=== PATIENT | male | born 1950 | race Caucasian/White ===

== ENCOUNTER 2019-12-07 13:55 | Inpatient (IN) | payer MEDICARE ==
[~2019-12-07] VITALS: Ht 175.3 cm; Wt 101.4 kg
[2019-12-07] MEDS ORDERED: SODIUM CHLORIDE 0.9% 1,000ML IVBOLUS ONE (14:30)
[2019-12-07] MEDS ORDERED: ONDANSETRON 2MG/ML, 2ML IVPush ONE (14:30)
[2019-12-07] MEDS ORDERED: SODIUM CHLORIDE FLUSH 10ML SYR IVF ONE (14:30)
--- NOTE | 2019-12-07 15:00 | NUR ---
Pt snet here from [facility] for leg wounds. Pt arrives to ed with lower bilateral leg pain and wounds with eschar and signs of poor perfusion. This RN is unable to palpate pedal pulse at this time. Pt connected to monitors and call light in reach. vss
[2019-12-07] MEDS ORDERED: ONDANSETRON 2MG/ML, 2ML ONE (15:14)
[2019-12-07] MEDS ORDERED: MORPHINE SULFATE 4 MG/ML, 1ML ONE ×2 (15:15→17:09)
--- NOTE | 2019-12-07 15:20 | NUR ---
Pt medicated and vascular us at bedside
[2019-12-07 15:23] LABS: MEAN CORPUSCULAR HEMOGLOBIN 30.3 pg (27.5-34.5); MEAN CORPUSCULAR HGB CONC 33.6 g/dL (33.2-36.2); MEAN CORPUSCULAR VOLUME 90.2 fL (81-97); MEAN PLATELET VOLUME 8.6 fL (7.4-10.4); PLATELET COUNT 307 x10^3/uL (130-400); RED BLOOD COUNT 5.28 x10^6/uL (4.38-5.82); RED CELL DISTRIBUTION WIDTH 14.8 % (9.4-14.8)
[2019-12-07] MEDS: MORPHINE SULFATE 4 MG/ML, 1ML IVPush PRN ×2 (15:23→17:13)
[2019-12-07 15:36] LABS: ALANINE AMINOTRANSFERASE 48 U/L (12-78); ANION GAP 13 mmol/L (5-15); CALCIUM 8.7 mg/dL (8.5-10.1); CHLORIDE 104 mmol/L (98-107); CREATININE 5.77 mg/dL (0.7-1.3)
[2019-12-07 15:38] LABS: ALKALINE PHOSPHATASE 137 U/L (45-117); BILIRUBIN,TOTAL 0.3 mg/dL (0.2-1.0); TOTAL PROTEIN 7.6 g/dL (6.4-8.2)
[2019-12-07 15:49] LABS: BASOPHILS # (AUTO) 0.06 x10^3/uL (0-0.1); BASOPHILS % (AUTO) 0 % (0-1); EOSINOPHILS # (AUTO) 1.92 x10^3/uL (0-0.4); EOSINOPHILS % (AUTO) 14 % (1-7); LYMPHOCYTES # (AUTO) 1.16 x10^3/uL (1-3.4); LYMPHOCYTES % (AUTO) 8 % (22-44); MD SCAN; MONOCYTES # (AUTO) 0.74 x10^3/uL (0.2-0.8); MONOCYTES % (AUTO) 5 % (2-9); NEUTROPHILS # (AUTO) 10.11 x10^3/uL (1.8-6.8); NEUTROPHILS % (AUTO) 72 % (42-75)
[2019-12-07] MEDS ORDERED: PLEASE ENTER ALLERGIES MC SCH (16:00)
--- NOTE | 2019-12-07 16:02 | NUR ---
Pt adjusted in bed for comfort. Reports pain under control.
[2019-12-07] MEDS ORDERED: SODIUM CHLORIDE 0.9% 1,000 ML IV SCH (17:04)
--- NOTE | 2019-12-07 17:15 | NUR ---
MED REQUESTED FROM [facility]
[2019-12-07] MEDS ORDERED: ONDANSETRON ODT 4 MG PO PRN (17:30)
[2019-12-07] MEDS ORDERED: ONDANSETRON 2MG/ML, 2ML IVPush PRN (17:30)
[2019-12-07] MEDS ORDERED: SENNA/DOCUSATE TABLET PO PRN (17:30)
--- NOTE | 2019-12-07 17:33 | NUR ---
Pt medicated for pain. Given oral swabs for comfort.
[2019-12-07] MEDS ORDERED: ASPI-515 PO (17:42)
[2019-12-07] MEDS ORDERED: FURO-93 PO (17:42)
[2019-12-07] MEDS ORDERED: LISI-170 PO (17:42)
[2019-12-07] MEDS ORDERED: NITR1PAT20 TD (17:42)
[2019-12-07] MEDS ORDERED: METF500T27 PO (17:42)
[2019-12-07] MEDS: CARVEDILOL 3.125 MG TABLET PO SCH (18:00)
[2019-12-07] MEDS ORDERED: HEPARIN 5,000 UNITS/ML, 1ML ONE (18:40)
[2019-12-07] MEDS ORDERED: NICOTINE 21 MG/24 HR PATCH.TD24 ONE (18:40)
[2019-12-07] MEDS: NICOTINE 21 MG/24 HR PATCH.TD24 TD SCH (18:45)
[2019-12-07] MEDS: HEPARIN 5,000 UNITS/ML, 1ML SQ SCH (18:45)
--- NOTE | 2019-12-07 18:47 | NUR ---
PT MEDICATED FOR PAIN, DIANA GRAY AWARE TO START ABX
--- NOTE | 2019-12-07 18:48 | NUR ---
REPORT TO ISAAC ORTIZ
[2019-12-07] MEDS: INSULIN LISPRO 100 UNITS/ML, PEN SQ-INSULIN SCH (20:01)
[2019-12-07] MEDS: ACETAMINOPHEN 325 MG TABLET PO PRN (21:22)
[2019-12-07 21:39] VITALS: BP 149/77
[2019-12-07] MEDS: AMPICILLIN/SULBACTAM 1,500 MG in SODIUM CHLORIDE 0.9% 50 ML IV SCH (22:20)
[2019-12-07] MEDS: LINEZOLID PMX 600MG/300ML 300 ML IV SCH (23:16)
[2019-12-08] MEDS ORDERED: ALBUTEROL SULFATE 2.5 MG/3 ML NPPB PRN (00:30)
[2019-12-08] MEDS: OXYcodone IR 5MG TABLET PO PRN ×3 (00:33→21:59)
[2019-12-08 01:11] VITALS: BP 115/60
[2019-12-08] MEDS: HEPARIN 5,000 UNITS/ML, 1ML SQ SCH ×3 (03:46→21:38)
[2019-12-08] MEDS: ASPIRIN 81 MG TABLET EC PO SCH (05:05)
[2019-12-08] MEDS: CARVEDILOL 3.125 MG TABLET PO SCH ×2 (05:05→17:36)
[2019-12-08 05:16] LABS: MEAN CORPUSCULAR HEMOGLOBIN 30.1 pg (27.5-34.5); MEAN CORPUSCULAR HGB CONC 33.3 g/dL (33.2-36.2); MEAN CORPUSCULAR VOLUME 90.4 fL (81-97); MEAN PLATELET VOLUME 8.9 fL (7.4-10.4); PLATELET COUNT 298 x10^3/uL (130-400); RED BLOOD COUNT 4.96 x10^6/uL (4.38-5.82); RED CELL DISTRIBUTION WIDTH 14.6 % (9.4-14.8)
[2019-12-08 05:29] LABS: ANION GAP 10 mmol/L (5-15); CALCIUM 8.6 mg/dL (8.5-10.1); CHLORIDE 108 mmol/L (98-107)
[2019-12-08 05:31] LABS: CREATININE 4.81 mg/dL (0.7-1.3)
[2019-12-08 06:15] LABS: BASOPHILS # (AUTO) 0.03 x10^3/uL (0-0.1); BASOPHILS % (AUTO) 0 % (0-1); EOSINOPHILS # (AUTO) 1.71 x10^3/uL (0-0.4); EOSINOPHILS % (AUTO) 10 % (1-7); LYMPHOCYTES # (AUTO) 0.99 x10^3/uL (1-3.4); LYMPHOCYTES % (AUTO) 6 % (22-44); MD SCAN; MONOCYTES # (AUTO) 1.48 x10^3/uL (0.2-0.8); MONOCYTES % (AUTO) 9 % (2-9); NEUTROPHILS # (AUTO) 12.21 x10^3/uL (1.8-6.8); NEUTROPHILS % (AUTO) 74 % (42-75)
[2019-12-08 06:41] VITALS: BP 110/61
[2019-12-08] MEDS: INSULIN LISPRO 100 UNITS/ML, PEN SQ-INSULIN SCH ×4 (07:00→21:00)
[2019-12-08] MEDS: LINEZOLID PMX 600MG/300ML 300 ML IV SCH ×2 (13:19→23:40)
[2019-12-08] MEDS: ACETAMINOPHEN 325 MG TABLET PO PRN ×2 (13:19→21:59)
[2019-12-08 14:29] LABS: CULTURE INDICATED? YES; MICROSCOPIC INDICATED
[2019-12-08 14:50] VITALS: BP 74/44
[2019-12-08] MEDS ORDERED: PHARMACY MAY ADJ FOR RENAL FX MC PRN (15:00)
[2019-12-08 15:04] LABS: CREATININE,URINE RANDOM 79.9 mg/dL
[2019-12-08] MEDS: SODIUM BICARB 8.4%,50ML SYR. 75 MEQ in SODIUM CHLORIDE 0.45% 1,000 ML IV SCH (15:21)
[2019-12-08] MEDS: NICOTINE 21 MG/24 HR PATCH.TD24 TD SCH (17:53)
[2019-12-08 19:32] VITALS: BP 107/68
[2019-12-08] MEDS: AMPICILLIN/SULBACTAM 1,500 MG in SODIUM CHLORIDE 0.9% 50 ML IV SCH (21:37)
[2019-12-09 01:24] VITALS: BP 104/64
[2019-12-09] MEDS: SODIUM BICARB 8.4%,50ML SYR. 75 MEQ in SODIUM CHLORIDE 0.45% 1,000 ML IV SCH ×2 (04:53→16:50)
[2019-12-09] MEDS: CARVEDILOL 3.125 MG TABLET PO SCH ×2 (05:05→16:51)
[2019-12-09] MEDS: ASPIRIN 81 MG TABLET EC PO SCH (05:05)
[2019-12-09] MEDS: HEPARIN 5,000 UNITS/ML, 1ML SQ SCH ×3 (05:05→19:46)
[2019-12-09 05:51] LABS: BASOPHILS # (AUTO) 0.03 x10^3/uL (0-0.1); BASOPHILS % (AUTO) 0 % (0-1); EOSINOPHILS # (AUTO) 1.42 x10^3/uL (0-0.4); EOSINOPHILS % (AUTO) 12 % (1-7); LYMPHOCYTES # (AUTO) 1.31 x10^3/uL (1-3.4); LYMPHOCYTES % (AUTO) 11 % (22-44); MD NO; MEAN CORPUSCULAR HEMOGLOBIN 30.2 pg (27.5-34.5); MEAN CORPUSCULAR HGB CONC 33.5 g/dL (33.2-36.2); MEAN CORPUSCULAR VOLUME 90.1 fL (81-97); MEAN PLATELET VOLUME 9.3 fL (7.4-10.4); MONOCYTES % (AUTO) 8 % (2-9); NEUTROPHILS # (AUTO) 8.63 x10^3/uL (1.8-6.8); NEUTROPHILS % (AUTO) 70 % (42-75); PLATELET COUNT 259 x10^3/uL (130-400); RED BLOOD COUNT 4.64 x10^6/uL (4.38-5.82); RED CELL DISTRIBUTION WIDTH 14.5 % (9.4-14.8)
[2019-12-09 05:52] LABS: ANION GAP 8 mmol/L (5-15); CALCIUM 8.4 mg/dL (8.5-10.1); CHLORIDE 111 mmol/L (98-107)
[2019-12-09 05:54] LABS: CREATININE 3.76 mg/dL (0.7-1.3)
[2019-12-09 06:53] VITALS: BP 93/41
[2019-12-09] MEDS: INSULIN LISPRO 100 UNITS/ML, PEN SQ-INSULIN SCH ×4 (07:00→19:45)
[2019-12-09] MEDS: OXYcodone IR 5MG TABLET PO PRN (09:09)
[2019-12-09] MEDS: LINEZOLID PMX 600MG/300ML 300 ML IV SCH ×2 (11:46→22:53)
[2019-12-09] MEDS ORDERED: OXYcodone/APAP 5/325MG TABLET ONE (12:47)
[2019-12-09] MEDS: OXYcodone/APAP 5/325MG TABLET PO PRN ×3 (12:52→22:08)
[2019-12-09 15:45] VITALS: BP 93/47
[2019-12-09 15:58] VITALS: BP 112/67
[2019-12-09] MEDS: NICOTINE 21 MG/24 HR PATCH.TD24 TD SCH (16:50)
[2019-12-09] MEDS: AMPICILLIN/SULBACTAM 1,500 MG in SODIUM CHLORIDE 0.9% 50 ML IV SCH (16:50)
[2019-12-09 18:38] VITALS: BP 107/57
[2019-12-10 01:27] VITALS: BP 117/71
[2019-12-10] MEDS: OXYcodone/APAP 5/325MG TABLET PO PRN ×3 (03:50→23:10)
[2019-12-10 05:44] LABS: BASOPHILS # (AUTO) 0.04 x10^3/uL (0-0.1); BASOPHILS % (AUTO) 0 % (0-1); EOSINOPHILS # (AUTO) 1.19 x10^3/uL (0-0.4); EOSINOPHILS % (AUTO) 11 % (1-7); LYMPHOCYTES # (AUTO) 0.94 x10^3/uL (1-3.4); LYMPHOCYTES % (AUTO) 9 % (22-44); MD NO; MEAN CORPUSCULAR VOLUME 90.9 fL (81-97); MEAN PLATELET VOLUME 9.1 fL (7.4-10.4); MONOCYTES # (AUTO) 0.73 x10^3/uL (0.2-0.8); MONOCYTES % (AUTO) 7 % (2-9); NEUTROPHILS # (AUTO) 8.09 x10^3/uL (1.8-6.8); NEUTROPHILS % (AUTO) 74 % (42-75); PLATELET COUNT 264 x10^3/uL (130-400); RED BLOOD COUNT 4.35 x10^6/uL (4.38-5.82); RED CELL DISTRIBUTION WIDTH 14.6 % (9.4-14.8)
[2019-12-10] MEDS: ASPIRIN 81 MG TABLET EC PO SCH (05:49)
[2019-12-10] MEDS: CARVEDILOL 3.125 MG TABLET PO SCH (05:49)
[2019-12-10] MEDS: HEPARIN 5,000 UNITS/ML, 1ML SQ SCH ×2 (05:49→16:57)
[2019-12-10] MEDS: AMPICILLIN/SULBACTAM 1,500 MG in SODIUM CHLORIDE 0.9% 50 ML IV SCH ×2 (05:49→16:57)
[2019-12-10 05:55] LABS: ANION GAP 10 mmol/L (5-15); CALCIUM 7.9 mg/dL (8.5-10.1); CHLORIDE 109 mmol/L (98-107); CREATININE 2.47 mg/dL (0.7-1.3)
[2019-12-10 06:51] VITALS: BP 99/44
[2019-12-10] MEDS: INSULIN LISPRO 100 UNITS/ML, PEN SQ-INSULIN SCH ×4 (07:00→21:00)
[2019-12-10] MEDS ORDERED: SODIUM CHLORIDE 0.9% 250 ML IV ONE (10:00)
[2019-12-10] MEDS: SODIUM BICARB 8.4%,50ML SYR. 75 MEQ in SODIUM CHLORIDE 0.45% 1,000 ML IV SCH (11:14)
[2019-12-10] MEDS: LINEZOLID PMX 600MG/300ML 300 ML IV SCH ×2 (11:41→23:10)
[2019-12-10 14:23] VITALS: BP 109/61
[2019-12-10] MEDS: NICOTINE 21 MG/24 HR PATCH.TD24 TD SCH (17:02)
[2019-12-10 19:23] VITALS: BP 107/71
[2019-12-11 00:53] VITALS: BP 98/56
[2019-12-11] MEDS: HEPARIN 5,000 UNITS/ML, 1ML SQ SCH ×3 (01:32→17:16)
[2019-12-11] MEDS: SODIUM BICARB 8.4%,50ML SYR. 75 MEQ in SODIUM CHLORIDE 0.45% 1,000 ML IV SCH (05:21)
[2019-12-11] MEDS: AMPICILLIN/SULBACTAM 1,500 MG in SODIUM CHLORIDE 0.9% 50 ML IV SCH ×3 (05:21→23:53)
[2019-12-11 05:27] LABS: BASOPHILS # (AUTO) 0.01 x10^3/uL (0-0.1); BASOPHILS % (AUTO) 0 % (0-1); EOSINOPHILS # (AUTO) 1.09 x10^3/uL (0-0.4); EOSINOPHILS % (AUTO) 9 % (1-7); LYMPHOCYTES % (AUTO) 10 % (22-44); MD NO; MEAN CORPUSCULAR HEMOGLOBIN 29.9 pg (27.5-34.5); MEAN CORPUSCULAR HGB CONC 33.4 g/dL (33.2-36.2); MEAN CORPUSCULAR VOLUME 89.7 fL (81-97); MEAN PLATELET VOLUME 8.7 fL (7.4-10.4); MONOCYTES # (AUTO) 0.81 x10^3/uL (0.2-0.8); MONOCYTES % (AUTO) 7 % (2-9); NEUTROPHILS # (AUTO) 8.64 x10^3/uL (1.8-6.8); NEUTROPHILS % (AUTO) 74 % (42-75); PLATELET COUNT 268 x10^3/uL (130-400); RED BLOOD COUNT 4.47 x10^6/uL (4.38-5.82); RED CELL DISTRIBUTION WIDTH 14.7 % (9.4-14.8)
[2019-12-11] MEDS: ASPIRIN 81 MG TABLET EC PO SCH (05:27)
[2019-12-11 05:35] LABS: ANION GAP 9 mmol/L (5-15); CALCIUM 8.2 mg/dL (8.5-10.1); CHLORIDE 108 mmol/L (98-107)
[2019-12-11 05:40] LABS: CHOL/HDL RATIO 5.5; CHOLESTEROL, TOTAL 122 mg/dL (140-239); CREATININE 2.03 mg/dL (0.7-1.3); HDL CHOL % 18 % (26-37); HDL CHOLESTEROL (DIRECT) 22 mg/dL (40-60); LDL CHOLESTEROL,CALCULATED 78 mg/dL (54-169); LDL/HDL RATIO 3.5 (0.5-3.0); TRIGLYCERIDES 108 mg/dL (50-200); VLDL CHOLESTEROL 22 mg/dL (0-25)
[2019-12-11] MEDS: OXYcodone/APAP 5/325MG TABLET PO PRN (07:10)
[2019-12-11] MEDS: INSULIN LISPRO 100 UNITS/ML, PEN SQ-INSULIN SCH ×4 (07:41→19:33)
[2019-12-11 08:03] VITALS: BP 175/100
[2019-12-11] MEDS: MORPHINE SULFATE 4 MG/ML, 1ML IVPush PRN ×4 (09:12→22:55)
[2019-12-11 09:15] VITALS: BP 116/66
[2019-12-11] MEDS: LINEZOLID PMX 600MG/300ML 300 ML IV SCH ×2 (11:59→23:00)
[2019-12-11 12:42] VITALS: BP 123/56
[2019-12-11] MEDS: CARVEDILOL 3.125 MG TABLET PO SCH (17:17)
[2019-12-11] MEDS: NICOTINE 21 MG/24 HR PATCH.TD24 TD SCH (17:17)
[2019-12-11 18:48] VITALS: BP 127/61
[2019-12-11] MEDS: ATORVASTATIN 80 MG TABLET PO SCH (19:51)
[2019-12-12 00:51] VITALS: BP 100/61
[2019-12-12] MEDS: LINEZOLID PMX 600MG/300ML 300 ML IV SCH ×3 (01:06→23:16)
[2019-12-12] MEDS: HEPARIN 5,000 UNITS/ML, 1ML SQ SCH ×3 (01:10→16:22)
[2019-12-12 04:59] LABS: BASOPHILS # (AUTO) 0.04 x10^3/uL (0-0.1); BASOPHILS % (AUTO) 0 % (0-1); EOSINOPHILS # (AUTO) 0.86 x10^3/uL (0-0.4); EOSINOPHILS % (AUTO) 7 % (1-7); LYMPHOCYTES # (AUTO) 1.17 x10^3/uL (1-3.4); LYMPHOCYTES % (AUTO) 10 % (22-44); MD NO; MEAN CORPUSCULAR HEMOGLOBIN 29.9 pg (27.5-34.5); MEAN CORPUSCULAR VOLUME 90.6 fL (81-97); MEAN PLATELET VOLUME 8.3 fL (7.4-10.4); MONOCYTES # (AUTO) 0.79 x10^3/uL (0.2-0.8); MONOCYTES % (AUTO) 7 % (2-9); NEUTROPHILS # (AUTO) 9.16 x10^3/uL (1.8-6.8); NEUTROPHILS % (AUTO) 76 % (42-75); PLATELET COUNT 301 x10^3/uL (130-400); RED BLOOD COUNT 4.91 x10^6/uL (4.38-5.82); RED CELL DISTRIBUTION WIDTH 14.6 % (9.4-14.8)
[2019-12-12 05:08] LABS: ALBUMIN 1.9 g/dL (3.4-5.0); ANION GAP 7 mmol/L (5-15); CALCIUM 8.5 mg/dL (8.5-10.1); CHLORIDE 107 mmol/L (98-107); CREATININE 1.73 mg/dL (0.7-1.3)
[2019-12-12] MEDS: ASPIRIN 81 MG TABLET EC PO SCH (05:10)
[2019-12-12] MEDS: CARVEDILOL 3.125 MG TABLET PO SCH ×2 (05:10→17:27)
[2019-12-12] MEDS: MORPHINE SULFATE 4 MG/ML, 1ML IVPush PRN ×3 (05:11→21:04)
[2019-12-12 06:21] VITALS: BP 108/63
[2019-12-12] MEDS: INSULIN LISPRO 100 UNITS/ML, PEN SQ-INSULIN SCH ×4 (07:00→21:05)
[2019-12-12] MEDS: AMPICILLIN/SULBACTAM 1,500 MG in SODIUM CHLORIDE 0.9% 50 ML IV SCH ×2 (08:43→16:22)
[2019-12-12] MEDS: OXYcodone/APAP 5/325MG TABLET PO PRN ×2 (11:12→18:12)
[2019-12-12 12:16] VITALS: BP 131/67
[2019-12-12] MEDS: NICOTINE 21 MG/24 HR PATCH.TD24 TD SCH (16:22)
[2019-12-12 19:03] VITALS: BP 151/54
[2019-12-12] MEDS: ATORVASTATIN 80 MG TABLET PO SCH (21:04)
[2019-12-13] VITALS (7 sets, daily range): BP systolic 110–134; BP diastolic 55–79
[2019-12-13] MEDS ORDERED: SODIUM BICARB 8.4%,50ML SYR. 75 MEQ in SODIUM CHLORIDE 0.45% 1,000 ML IV ONE
[2019-12-13] MEDS: HEPARIN 5,000 UNITS/ML, 1ML SQ SCH ×3 (02:04→17:30)
[2019-12-13] MEDS: AMPICILLIN/SULBACTAM 1,500 MG in SODIUM CHLORIDE 0.9% 50 ML IV SCH ×3 (02:04→17:27)
[2019-12-13 04:58] LABS: BASOPHILS % (AUTO) 1 % (0-1); EOSINOPHILS % (AUTO) 11 % (1-7); LYMPHOCYTES # (AUTO) 1.34 x10^3/uL (1-3.4); LYMPHOCYTES % (AUTO) 12 % (22-44); MD NO; MEAN CORPUSCULAR HEMOGLOBIN 29.8 pg (27.5-34.5); MEAN CORPUSCULAR HGB CONC 32.9 g/dL (33.2-36.2); MEAN CORPUSCULAR VOLUME 90.6 fL (81-97); MEAN PLATELET VOLUME 8.7 fL (7.4-10.4); MONOCYTES % (AUTO) 6 % (2-9); NEUTROPHILS # (AUTO) 7.74 x10^3/uL (1.8-6.8); NEUTROPHILS % (AUTO) 70 % (42-75); PLATELET COUNT 285 x10^3/uL (130-400); RED BLOOD COUNT 4.68 x10^6/uL (4.38-5.82); RED CELL DISTRIBUTION WIDTH 14.6 % (9.4-14.8)
[2019-12-13 05:03] LABS: ANION GAP 8 mmol/L (5-15); CALCIUM 8.3 mg/dL (8.5-10.1); CHLORIDE 106 mmol/L (98-107); CREATININE 1.52 mg/dL (0.7-1.3)
[2019-12-13] MEDS: CARVEDILOL 3.125 MG TABLET PO SCH ×2 (05:55→17:30)
[2019-12-13] MEDS: ASPIRIN 81 MG TABLET EC PO SCH (05:55)
[2019-12-13] MEDS: INSULIN LISPRO 100 UNITS/ML, PEN SQ-INSULIN SCH ×4 (07:52→20:16)
[2019-12-13] MEDS: MORPHINE SULFATE 4 MG/ML, 1ML IVPush PRN ×2 (09:46→20:12)
[2019-12-13] MEDS: LINEZOLID PMX 600MG/300ML 300 ML IV SCH ×2 (10:39→22:10)
[2019-12-13] MEDS ORDERED: FENTANYL PF 100 MCG/2ML ONE (11:39)
[2019-12-13] MEDS ORDERED: MIDAZOLAM 1 MG/ML, 5ML ONE (11:39)
[2019-12-13] MEDS ORDERED: HEPARIN 1,000 UNITS/ML, 10ML ONE (11:39)
[2019-12-13] MEDS ORDERED: VERAPAMIL 2.5 MG/ML, 2ML ONE (11:39)
[2019-12-13] MEDS ORDERED: LIDOCAINE-MPF 1%, 5ML ONE (11:39)
[2019-12-13] MEDS ORDERED: TICAGRELOR 90 MG TABLET ONE (11:39)
[2019-12-13] MEDS ORDERED: BIVALIRUDIN 250 MG ONE (11:39)
[2019-12-13] MEDS: SODIUM CHLORIDE 0.9% 1,000 ML IV SCH (17:24)
[2019-12-13] MEDS: NICOTINE 21 MG/24 HR PATCH.TD24 TD SCH (17:34)
[2019-12-13] MEDS: ATORVASTATIN 80 MG TABLET PO SCH (20:11)
[2019-12-14 00:39] VITALS: BP 135/56
[2019-12-14] MEDS: HEPARIN 5,000 UNITS/ML, 1ML SQ SCH ×3 (01:09→17:51)
[2019-12-14] MEDS: AMPICILLIN/SULBACTAM 1,500 MG in SODIUM CHLORIDE 0.9% 50 ML IV SCH ×3 (01:09→17:52)
[2019-12-14] MEDS: MORPHINE SULFATE 4 MG/ML, 1ML IVPush PRN ×2 (01:10→16:31)
[2019-12-14 05:54] LABS: BASOPHILS # (AUTO) 0.04 x10^3/uL (0-0.1); BASOPHILS % (AUTO) 0 % (0-1); EOSINOPHILS # (AUTO) 0.73 x10^3/uL (0-0.4); EOSINOPHILS % (AUTO) 7 % (1-7); LYMPHOCYTES # (AUTO) 1.18 x10^3/uL (1-3.4); LYMPHOCYTES % (AUTO) 11 % (22-44); MD NO; MEAN CORPUSCULAR HEMOGLOBIN 30.1 pg (27.5-34.5); MEAN CORPUSCULAR HGB CONC 33.4 g/dL (33.2-36.2); MEAN CORPUSCULAR VOLUME 90.3 fL (81-97); MEAN PLATELET VOLUME 8.7 fL (7.4-10.4); MONOCYTES # (AUTO) 0.75 x10^3/uL (0.2-0.8); MONOCYTES % (AUTO) 7 % (2-9); NEUTROPHILS # (AUTO) 7.73 x10^3/uL (1.8-6.8); NEUTROPHILS % (AUTO) 74 % (42-75); PLATELET COUNT 239 x10^3/uL (130-400); RED BLOOD COUNT 4.53 x10^6/uL (4.38-5.82); RED CELL DISTRIBUTION WIDTH 14.5 % (9.4-14.8)
[2019-12-14 06:10] LABS: ANION GAP 9 mmol/L (5-15); CALCIUM 8.1 mg/dL (8.5-10.1); CHLORIDE 109 mmol/L (98-107)
[2019-12-14] MEDS: SODIUM CHLORIDE 0.9% 1,000 ML IV SCH ×2 (06:10→16:30)
[2019-12-14] MEDS: ASPIRIN 81 MG TABLET EC PO SCH (06:10)
[2019-12-14] MEDS: CARVEDILOL 3.125 MG TABLET PO SCH ×2 (06:10→17:56)
[2019-12-14 06:13] LABS: CREATININE 1.39 mg/dL (0.7-1.3)
[2019-12-14 06:40] VITALS: BP 117/67
[2019-12-14] MEDS: INSULIN LISPRO 100 UNITS/ML, PEN SQ-INSULIN SCH ×4 (07:00→20:50)
[2019-12-14] MEDS: LINEZOLID PMX 600MG/300ML 300 ML IV SCH (11:03)
[2019-12-14 12:50] VITALS: BP 137/67
[2019-12-14 16:30] VITALS: BP 150/62
[2019-12-14] MEDS: NICOTINE 21 MG/24 HR PATCH.TD24 TD SCH (17:53)
[2019-12-14 19:47] VITALS: BP 144/79
[2019-12-14] MEDS: ATORVASTATIN 80 MG TABLET PO SCH (20:46)
[2019-12-14] MEDS: OXYcodone/APAP 5/325MG TABLET PO PRN (21:40)
[2019-12-15] MEDS: SODIUM CHLORIDE 0.9% 1,000 ML IV SCH
[2019-12-15] MEDS: HEPARIN 5,000 UNITS/ML, 1ML SQ SCH ×3 (00:54→17:09)
[2019-12-15] MEDS: LINEZOLID PMX 600MG/300ML 300 ML IV SCH ×2 (01:00→18:36)
[2019-12-15 01:13] VITALS: BP 135/65
[2019-12-15] MEDS: AMPICILLIN/SULBACTAM 1,500 MG in SODIUM CHLORIDE 0.9% 50 ML IV SCH ×3 (03:13→21:28)
[2019-12-15 04:10] LABS: BASOPHILS # (AUTO) 0.02 x10^3/uL (0-0.1); BASOPHILS % (AUTO) 0 % (0-1); EOSINOPHILS # (AUTO) 0.47 x10^3/uL (0-0.4); EOSINOPHILS % (AUTO) 4 % (1-7); LYMPHOCYTES # (AUTO) 1.05 x10^3/uL (1-3.4); LYMPHOCYTES % (AUTO) 10 % (22-44); MD NO; MEAN CORPUSCULAR HGB CONC 33.6 g/dL (33.2-36.2); MEAN CORPUSCULAR VOLUME 89.3 fL (81-97); MEAN PLATELET VOLUME 7.9 fL (7.4-10.4); MONOCYTES # (AUTO) 0.57 x10^3/uL (0.2-0.8); MONOCYTES % (AUTO) 5 % (2-9); NEUTROPHILS # (AUTO) 8.96 x10^3/uL (1.8-6.8); NEUTROPHILS % (AUTO) 81 % (42-75); PLATELET COUNT 237 x10^3/uL (130-400); RED BLOOD COUNT 4.32 x10^6/uL (4.38-5.82); RED CELL DISTRIBUTION WIDTH 14.2 % (9.4-14.8)
[2019-12-15 04:20] LABS: ALANINE AMINOTRANSFERASE 17 U/L (12-78); ALBUMIN 1.7 g/dL (3.4-5.0); ANION GAP 7 mmol/L (5-15); CALCIUM 7.9 mg/dL (8.5-10.1); CHLORIDE 110 mmol/L (98-107); CREATININE 1.28 mg/dL (0.7-1.3)
[2019-12-15 04:22] LABS: ALKALINE PHOSPHATASE 127 U/L (45-117); BILIRUBIN,TOTAL 0.5 mg/dL (0.2-1.0); TOTAL PROTEIN 5.7 g/dL (6.4-8.2)
[2019-12-15 06:08] VITALS: BP 128/65
[2019-12-15] MEDS: CARVEDILOL 3.125 MG TABLET PO SCH ×2 (06:08→18:24)
[2019-12-15] MEDS: ASPIRIN 81 MG TABLET EC PO SCH (06:09)
[2019-12-15 06:42] VITALS: BP 147/73
[2019-12-15] MEDS: INSULIN LISPRO 100 UNITS/ML, PEN SQ-INSULIN SCH ×4 (07:00→21:29)
[2019-12-15] MEDS ORDERED: PAPAVERINE 30 MG/ML, 2ML ONE (07:28)
[2019-12-15] MEDS ORDERED: HEPARIN 1,000 UNITS/ML, 10ML ONE (07:29)
[2019-12-15] MEDS ORDERED: THROMBIN 20,000 UNIT VIAL TP ONE (07:30)
[2019-12-15] MEDS ORDERED: BACITRACIN 50,000 UNIT ONE (07:31)
[2019-12-15] MEDS ORDERED: DEXTROSE 50%, 50ML SYRINGE ONE (07:49)
[2019-12-15] MEDS: MORPHINE SULFATE 4 MG/ML, 1ML IVPush PRN (07:54)
[2019-12-15] MEDS ORDERED: DEXTROSE 4 GM TAB.CHEW PO PRN (08:00)
[2019-12-15] MEDS ORDERED: GLUCAGON 1 MG IM PRN (08:00)
[2019-12-15] MEDS ORDERED: DEXTROSE 50%, 50ML SYRINGE IVPush PRN (08:00)
[2019-12-15] MEDS: SODIUM CHLORIDE FLUSH 10ML SYR IVF SCH ×2 (08:03→21:00)
[2019-12-15] MEDS ORDERED: PROTAMINE SULFATE 10 MG/ML, 5ML ONE (08:51)
[2019-12-15] MEDS: D5%-0.45NACL+KCL 20MEQ 1,000 ML IV SCH ×2 (09:54→22:36)
[2019-12-15] MEDS: OXYcodone/APAP 5/325MG TABLET PO PRN (10:15)
[2019-12-15] MEDS ORDERED: FENTANYL PF 250 MCG/5ML ONE (12:43)
[2019-12-15] MEDS ORDERED: MIDAZOLAM 1 MG/ML, 2ML ONE (12:43)
[2019-12-15] MEDS ORDERED: ROCURONIUM 10MG/ML,5ML ONE (12:45)
[2019-12-15] MEDS ORDERED: PROPOFOL 10 MG/ML, 20ML ONE (12:45)
[2019-12-15] MEDS ORDERED: EPHEDRINE 50 MG/ML, 1ML ONE (13:09)
[2019-12-15] MEDS ORDERED: DEXAMETHASONE 4 MG/ML, 1ML ONE (13:09)
[2019-12-15] MEDS ORDERED: CEFAZOLIN 1,000 MG ONE (13:09)
[2019-12-15] MEDS ORDERED: HEPARIN 1,000 UNITS/ML, 30ML ONE (13:40)
[2019-12-15] MEDS ORDERED: SUGAMMADEX 200 MG/2 ML IVPush ONE (14:24)
[2019-12-15] MEDS ORDERED: MEPERIDINE/PF 25MG/ML,1ML IVPush PRN (16:00)
[2019-12-15] MEDS ORDERED: OXYcodone 5 MG/5 ML ORAL.SOL UDC PO PRN (16:00)
[2019-12-15] MEDS ORDERED: LABETALOL 5MG/ML, 20ML IV PRN (16:00)
[2019-12-15] MEDS ORDERED: ONDANSETRON ODT 8 MG PO PRN (16:00)
[2019-12-15] MEDS ORDERED: PROMETHAZINE 12.5 MG SUPP PR PRN (16:00)
[2019-12-15] MEDS ORDERED: HYDROmorphone 2 MG/ML, 1ML IVPush PRN (16:00)
[2019-12-15] MEDS ORDERED: MIDAZOLAM 1 MG/ML, 2ML IV PRN (16:00)
[2019-12-15] MEDS ORDERED: ALBUTEROL SULFATE 2.5 MG/3 ML NPPB PRN (16:00)
[2019-12-15] MEDS ORDERED: HALOPERIDOL 5 MG/ML IV PRN (16:00)
[2019-12-15] MEDS ORDERED: DIAZEPAM 5 MG/ML, 2ML IVPush PRN (16:00)
[2019-12-15] MEDS ORDERED: PROMETHAZINE 25 MG/ML, 1ML IV PRN (16:00)
[2019-12-15] MEDS ORDERED: hydrALAzine 20 MG/ML, 1ML IV PRN (16:00)
[2019-12-15] MEDS ORDERED: EPHEDRINE 50 MG/ML, 1ML IVPush PRN (16:00)
[2019-12-15] MEDS ORDERED: FENTANYL PF 100 MCG/2ML ONE (16:58)
[2019-12-15] MEDS ORDERED: OXYcodone 5 MG/5 ML ORAL.SOL UDC ONE (16:58)
[2019-12-15] MEDS: FENTANYL PF 100 MCG/2ML IV PRN ×2 (17:04→17:11)
[2019-12-15] MEDS ORDERED: morphine SULFATE 10 MG/ML, 1ML IV PRN (18:00)
[2019-12-15] MEDS: NICOTINE 21 MG/24 HR PATCH.TD24 TD SCH (18:23)
[2019-12-15] MEDS: ATORVASTATIN 80 MG TABLET PO SCH (20:02)
[2019-12-15 21:43] VITALS: BP 95/59
[2019-12-16] VITALS (10 sets, daily range): BP systolic 87–114; BP diastolic 43–90
[2019-12-16] MEDS: HEPARIN 5,000 UNITS/ML, 1ML SQ SCH ×4 (01:47→22:04)
[2019-12-16] MEDS ORDERED: SODIUM CHLORIDE 0.9%, 500ML IVBOLUS ONE ×3 (05:00→11:00)
[2019-12-16 05:14] LABS: ANION GAP 9 mmol/L (5-15); CALCIUM 7.7 mg/dL (8.5-10.1); CHLORIDE 108 mmol/L (98-107)
[2019-12-16 05:16] LABS: CREATININE 1.64 mg/dL (0.7-1.3)
[2019-12-16 05:22] LABS: MEAN CORPUSCULAR HEMOGLOBIN 29.8 pg (27.5-34.5); MEAN CORPUSCULAR HGB CONC 32.8 g/dL (33.2-36.2); MEAN CORPUSCULAR VOLUME 90.8 fL (81-97); MEAN PLATELET VOLUME 8.2 fL (7.4-10.4); PLATELET COUNT 265 x10^3/uL (130-400); RED BLOOD COUNT 3.91 x10^6/uL (4.38-5.82); RED CELL DISTRIBUTION WIDTH 14.3 % (9.4-14.8)
[2019-12-16] MEDS: AMPICILLIN/SULBACTAM 1,500 MG in SODIUM CHLORIDE 0.9% 50 ML IV SCH ×3 (05:29→21:58)
[2019-12-16] MEDS: D5%-0.45NACL+KCL 20MEQ 1,000 ML IV SCH (05:39)
[2019-12-16] MEDS: LINEZOLID PMX 600MG/300ML 300 ML IV SCH ×2 (06:08→18:31)
[2019-12-16 06:12] LABS: BASOPHILS # (AUTO) 0.01 x10^3/uL (0-0.1); BASOPHILS % (AUTO) 0 % (0-1); EOSINOPHILS % (AUTO) 0 % (1-7); LYMPHOCYTES % (AUTO) 4 % (22-44); MD SCAN; MONOCYTES # (AUTO) 1.05 x10^3/uL (0.2-0.8); MONOCYTES % (AUTO) 5 % (2-9); NEUTROPHILS # (AUTO) 18.27 x10^3/uL (1.8-6.8); NEUTROPHILS % (AUTO) 91 % (42-75)
[2019-12-16] MEDS: CARVEDILOL 3.125 MG TABLET PO SCH ×2 (06:12→18:21)
[2019-12-16] MEDS: ASPIRIN 81 MG TABLET EC PO SCH (06:12)
[2019-12-16] MEDS: INSULIN LISPRO 100 UNITS/ML, PEN SQ-INSULIN SCH ×4 (07:44→20:12)
[2019-12-16] MEDS: SODIUM CHLORIDE FLUSH 10ML SYR IVF SCH ×2 (09:02→21:58)
[2019-12-16] MEDS: SODIUM CHLORIDE 0.9% 1,000 ML IV SCH ×2 (12:04→19:30)
[2019-12-16] MEDS: NICOTINE 21 MG/24 HR PATCH.TD24 TD SCH (18:31)
[2019-12-16] MEDS: ATORVASTATIN 80 MG TABLET PO SCH (21:58)
[2019-12-17 00:06] VITALS: BP 109/66
[2019-12-17] MEDS: HEPARIN 5,000 UNITS/ML, 1ML SQ SCH ×3 (00:19→17:16)
[2019-12-17] MEDS: SODIUM CHLORIDE 0.9% 1,000 ML IV SCH ×2 (02:52→14:36)
[2019-12-17] MEDS: AMPICILLIN/SULBACTAM 1,500 MG in SODIUM CHLORIDE 0.9% 50 ML IV SCH ×3 (05:03→20:27)
[2019-12-17] MEDS: CARVEDILOL 3.125 MG TABLET PO SCH ×2 (05:03→17:16)
[2019-12-17] MEDS: ASPIRIN 81 MG TABLET EC PO SCH (05:03)
[2019-12-17 05:04] VITALS: BP 100/66
[2019-12-17] MEDS: LINEZOLID PMX 600MG/300ML 300 ML IV SCH ×2 (06:27→17:16)
[2019-12-17 07:30] VITALS: BP 115/75
[2019-12-17 08:25] LABS: BASOPHILS # (AUTO) 0.01 x10^3/uL (0-0.1); BASOPHILS % (AUTO) 0 % (0-1); EOSINOPHILS % (AUTO) 0 % (1-7); LYMPHOCYTES # (AUTO) 0.76 x10^3/uL (1-3.4); LYMPHOCYTES % (AUTO) 5 % (22-44); MD NO; MEAN CORPUSCULAR HEMOGLOBIN 29.8 pg (27.5-34.5); MEAN CORPUSCULAR HGB CONC 32.6 g/dL (33.2-36.2); MEAN CORPUSCULAR VOLUME 91.1 fL (81-97); MEAN PLATELET VOLUME 8.1 fL (7.4-10.4); MONOCYTES # (AUTO) 0.93 x10^3/uL (0.2-0.8); MONOCYTES % (AUTO) 6 % (2-9); NEUTROPHILS # (AUTO) 14.49 x10^3/uL (1.8-6.8); NEUTROPHILS % (AUTO) 90 % (42-75); PLATELET COUNT 249 x10^3/uL (130-400); RED BLOOD COUNT 3.53 x10^6/uL (4.38-5.82); RED CELL DISTRIBUTION WIDTH 14.7 % (9.4-14.8)
[2019-12-17] MEDS: SODIUM CHLORIDE FLUSH 10ML SYR IVF SCH ×2 (08:30→20:28)
[2019-12-17 08:35] LABS: ALANINE AMINOTRANSFERASE 14 U/L (12-78); ALBUMIN 1.7 g/dL (3.4-5.0); ANION GAP 8 mmol/L (5-15); CALCIUM 7.4 mg/dL (8.5-10.1); CHLORIDE 108 mmol/L (98-107); CREATININE 1.54 mg/dL (0.7-1.3)
[2019-12-17 08:36] LABS: ALKALINE PHOSPHATASE 116 U/L (45-117); BILIRUBIN,TOTAL 0.7 mg/dL (0.2-1.0); TOTAL PROTEIN 5.3 g/dL (6.4-8.2)
[2019-12-17] MEDS: INSULIN LISPRO 100 UNITS/ML, PEN SQ-INSULIN SCH ×4 (09:19→20:29)
[2019-12-17 13:38] VITALS: BP 132/83
[2019-12-17] MEDS: NICOTINE 21 MG/24 HR PATCH.TD24 TD SCH (16:54)
[2019-12-17 18:54] VITALS: BP 107/64
[2019-12-17] MEDS: ATORVASTATIN 80 MG TABLET PO SCH (20:28)
[2019-12-18] MEDS: HEPARIN 5,000 UNITS/ML, 1ML SQ SCH ×3 (00:28→22:23)
[2019-12-18] MEDS: SODIUM CHLORIDE 0.9% 1,000 ML IV SCH ×3 (00:29→22:24)
[2019-12-18 00:39] VITALS: BP 121/70
[2019-12-18] MEDS: AMPICILLIN/SULBACTAM 1,500 MG in SODIUM CHLORIDE 0.9% 50 ML IV SCH ×4 (01:16→22:52)
[2019-12-18 04:48] LABS: BASOPHILS # (AUTO) 0.08 x10^3/uL (0-0.1); BASOPHILS % (AUTO) 1 % (0-1); EOSINOPHILS % (AUTO) 0 % (1-7); LYMPHOCYTES # (AUTO) 1.05 x10^3/uL (1-3.4); LYMPHOCYTES % (AUTO) 7 % (22-44); MD NO; MEAN CORPUSCULAR HEMOGLOBIN 29.6 pg (27.5-34.5); MEAN CORPUSCULAR HGB CONC 33.2 g/dL (33.2-36.2); MEAN CORPUSCULAR VOLUME 89.2 fL (81-97); MEAN PLATELET VOLUME 8.5 fL (7.4-10.4); MONOCYTES % (AUTO) 6 % (2-9); NEUTROPHILS % (AUTO) 86 % (42-75); PLATELET COUNT 245 x10^3/uL (130-400); RED BLOOD COUNT 3.72 x10^6/uL (4.38-5.82); RED CELL DISTRIBUTION WIDTH 14.3 % (9.4-14.8)
[2019-12-18 04:59] LABS: CALCIUM 7.8 mg/dL (8.5-10.1); CHLORIDE 112 mmol/L (98-107)
[2019-12-18 05:05] LABS: ALANINE AMINOTRANSFERASE 21 U/L (12-78); ALBUMIN 1.6 g/dL (3.4-5.0); ALKALINE PHOSPHATASE 112 U/L (45-117); ANION GAP 11 mmol/L (5-15); BILIRUBIN,TOTAL 0.8 mg/dL (0.2-1.0); CREATININE 1.45 mg/dL (0.7-1.3); TOTAL PROTEIN 5.4 g/dL (6.4-8.2)
[2019-12-18] MEDS: LINEZOLID PMX 600MG/300ML 300 ML IV SCH ×2 (05:43→18:05)
[2019-12-18] MEDS: ASPIRIN 81 MG TABLET EC PO SCH (05:43)
[2019-12-18] MEDS: CARVEDILOL 3.125 MG TABLET PO SCH ×2 (05:44→18:05)
[2019-12-18] MEDS: MORPHINE SULFATE 4 MG/ML, 1ML IVPush PRN (05:54)
[2019-12-18] MEDS: INSULIN LISPRO 100 UNITS/ML, PEN SQ-INSULIN SCH ×4 (07:00→22:49)
[2019-12-18 07:42] VITALS: BP 114/70
[2019-12-18] MEDS: LACTOBACILLUS CHEW TABLET PO SCH ×3 (09:58→22:23)
[2019-12-18] MEDS: SODIUM CHLORIDE FLUSH 10ML SYR IVF SCH ×2 (09:58→22:23)
[2019-12-18] MEDS: CLOPIDOGREL 75 MG TABLET PO SCH (09:58)
[2019-12-18 14:19] VITALS: BP 106/65
[2019-12-18] MEDS: NICOTINE 21 MG/24 HR PATCH.TD24 TD SCH (17:30)
[2019-12-18 17:32] VITALS: BP 108/53
[2019-12-18 20:29] VITALS: BP 103/68
[2019-12-18] MEDS: ATORVASTATIN 80 MG TABLET PO SCH (22:23)
[2019-12-19 00:34] VITALS: BP 107/53
[2019-12-19] MEDS: AMPICILLIN/SULBACTAM 1,500 MG in SODIUM CHLORIDE 0.9% 50 ML IV SCH ×4 (04:34→22:32)
[2019-12-19 05:26] LABS: BASOPHILS # (AUTO) 0.01 x10^3/uL (0-0.1); BASOPHILS % (AUTO) 0 % (0-1); EOSINOPHILS # (AUTO) 0.02 x10^3/uL (0-0.4); EOSINOPHILS % (AUTO) 0 % (1-7); LYMPHOCYTES # (AUTO) 1.09 x10^3/uL (1-3.4); LYMPHOCYTES % (AUTO) 8 % (22-44); MD NO; MEAN CORPUSCULAR HGB CONC 33.4 g/dL (33.2-36.2); MEAN CORPUSCULAR VOLUME 89.9 fL (81-97); MEAN PLATELET VOLUME 8.5 fL (7.4-10.4); MONOCYTES # (AUTO) 0.62 x10^3/uL (0.2-0.8); MONOCYTES % (AUTO) 5 % (2-9); NEUTROPHILS # (AUTO) 11.62 x10^3/uL (1.8-6.8); NEUTROPHILS % (AUTO) 87 % (42-75); PLATELET COUNT 230 x10^3/uL (130-400); RED BLOOD COUNT 3.34 x10^6/uL (4.38-5.82); RED CELL DISTRIBUTION WIDTH 14.1 % (9.4-14.8)
[2019-12-19 05:36] LABS: ALBUMIN 1.4 g/dL (3.4-5.0); ANION GAP 10 mmol/L (5-15); CALCIUM 7.4 mg/dL (8.5-10.1); CHLORIDE 113 mmol/L (98-107)
[2019-12-19 05:42] LABS: ALANINE AMINOTRANSFERASE 17 U/L (12-78); ALKALINE PHOSPHATASE 92 U/L (45-117); BILIRUBIN,TOTAL 0.6 mg/dL (0.2-1.0); CREATININE 1.44 mg/dL (0.7-1.3); TOTAL PROTEIN 4.6 g/dL (6.4-8.2)
[2019-12-19 06:05] VITALS: BP 96/60
[2019-12-19] MEDS: HEPARIN 5,000 UNITS/ML, 1ML SQ SCH ×3 (06:08→20:54)
[2019-12-19] MEDS: SODIUM CHLORIDE 0.9% 1,000 ML IV SCH ×2 (06:08→23:58)
[2019-12-19] MEDS: CARVEDILOL 3.125 MG TABLET PO SCH ×2 (06:08→17:56)
[2019-12-19] MEDS: LINEZOLID PMX 600MG/300ML 300 ML IV SCH ×2 (06:09→17:56)
[2019-12-19] MEDS: INSULIN LISPRO 100 UNITS/ML, PEN SQ-INSULIN SCH ×4 (07:00→21:00)
[2019-12-19] MEDS: CLOPIDOGREL 75 MG TABLET PO SCH (08:26)
[2019-12-19] MEDS: ONDANSETRON 2MG/ML, 2ML IV PRN ×2 (08:26→16:52)
[2019-12-19] MEDS: LACTOBACILLUS CHEW TABLET PO SCH ×3 (08:26→20:54)
[2019-12-19] MEDS: SODIUM CHLORIDE FLUSH 10ML SYR IVF SCH ×2 (08:27→21:00)
[2019-12-19 14:36] VITALS: BP 118/64
[2019-12-19] MEDS ORDERED: MAGNESIUM SULFATE PMX 2GM/50ML 50 ML IV ONE (15:00)
[2019-12-19] MEDS: POTASSIUM ACID PHOSPHATE 500 MG TABLET.SOL PO SCH ×2 (15:10→20:53)
[2019-12-19] MEDS: NICOTINE 21 MG/24 HR PATCH.TD24 TD SCH (16:37)
[2019-12-19 17:56] VITALS: BP 115/70
[2019-12-19 19:45] VITALS: BP 118/71
[2019-12-19] MEDS: ATORVASTATIN 80 MG TABLET PO SCH (20:54)
[2019-12-20 01:49] VITALS: BP 94/58
[2019-12-20] MEDS: AMPICILLIN/SULBACTAM 1,500 MG in SODIUM CHLORIDE 0.9% 50 ML IV SCH ×3 (03:56→20:33)
[2019-12-20] MEDS: HEPARIN 5,000 UNITS/ML, 1ML SQ SCH ×3 (05:48→21:13)
[2019-12-20] MEDS: LINEZOLID PMX 600MG/300ML 300 ML IV SCH ×2 (05:48→21:13)
[2019-12-20] MEDS: CARVEDILOL 3.125 MG TABLET PO SCH ×2 (05:51→18:15)
[2019-12-20 06:00] LABS: BASOPHILS # (AUTO) 0.02 x10^3/uL (0-0.1); BASOPHILS % (AUTO) 0 % (0-1); EOSINOPHILS # (AUTO) 0.04 x10^3/uL (0-0.4); EOSINOPHILS % (AUTO) 0 % (1-7); LYMPHOCYTES % (AUTO) 11 % (22-44); MD NO; MEAN CORPUSCULAR HEMOGLOBIN 30.2 pg (27.5-34.5); MEAN CORPUSCULAR HGB CONC 33.9 g/dL (33.2-36.2); MEAN PLATELET VOLUME 8.6 fL (7.4-10.4); MONOCYTES # (AUTO) 0.56 x10^3/uL (0.2-0.8); MONOCYTES % (AUTO) 5 % (2-9); NEUTROPHILS # (AUTO) 9.15 x10^3/uL (1.8-6.8); NEUTROPHILS % (AUTO) 83 % (42-75); PLATELET COUNT 205 x10^3/uL (130-400); RED BLOOD COUNT 3.04 x10^6/uL (4.38-5.82); RED CELL DISTRIBUTION WIDTH 14.3 % (9.4-14.8)
[2019-12-20 06:05] LABS: ALBUMIN 1.4 g/dL (3.4-5.0); ANION GAP 9 mmol/L (5-15); CALCIUM 7.4 mg/dL (8.5-10.1); CHLORIDE 115 mmol/L (98-107)
[2019-12-20 06:09] LABS: ALANINE AMINOTRANSFERASE 18 U/L (12-78); ALKALINE PHOSPHATASE 95 U/L (45-117); BILIRUBIN,TOTAL 0.6 mg/dL (0.2-1.0); CREATINE KINASE, TOTAL 369 U/L (39-308); CREATININE 1.36 mg/dL (0.7-1.3); TOTAL PROTEIN 4.8 g/dL (6.4-8.2)
[2019-12-20] MEDS: INSULIN LISPRO 100 UNITS/ML, PEN SQ-INSULIN SCH ×4 (07:00→20:36)
[2019-12-20 07:19] VITALS: BP 102/64
[2019-12-20] MEDS: SODIUM CHLORIDE 0.9% 1,000 ML IV SCH (07:45)
[2019-12-20] MEDS: SODIUM CHLORIDE FLUSH 10ML SYR IVF SCH ×2 (09:00→20:06)
[2019-12-20] MEDS: LACTOBACILLUS CHEW TABLET PO SCH ×3 (09:29→21:13)
[2019-12-20] MEDS: CLOPIDOGREL 75 MG TABLET PO SCH (09:29)
[2019-12-20] MEDS ORDERED: SODIUM BICARBONATE 8.4% 150 MEQ in DEXTROSE 5% 1,000 ML IV SCH (12:30)
[2019-12-20] MEDS ORDERED: SODIUM PHOSPHATE 15 MMOL in SODIUM CHLORIDE 0.9% 500 ML IV ONE (13:30)
[2019-12-20 14:46] VITALS: BP 123/79
[2019-12-20] MEDS: NICOTINE 21 MG/24 HR PATCH.TD24 TD SCH (16:15)
[2019-12-20 20:58] VITALS: BP 124/73
[2019-12-20] MEDS: ATORVASTATIN 80 MG TABLET PO SCH (21:00)
[2019-12-21 01:49] VITALS: BP 144/74
[2019-12-21] MEDS: AMPICILLIN/SULBACTAM 1,500 MG in SODIUM CHLORIDE 0.9% 50 ML IV SCH ×4 (02:00→20:17)
[2019-12-21] MEDS: HEPARIN 5,000 UNITS/ML, 1ML SQ SCH ×3 (06:03→21:22)
[2019-12-21] MEDS: CARVEDILOL 3.125 MG TABLET PO SCH ×2 (06:03→17:13)
[2019-12-21 06:12] LABS: BASOPHILS % (AUTO) 0 % (0-1); EOSINOPHILS # (AUTO) 0.05 x10^3/uL (0-0.4); EOSINOPHILS % (AUTO) 0 % (1-7); LYMPHOCYTES # (AUTO) 1.11 x10^3/uL (1-3.4); LYMPHOCYTES % (AUTO) 9 % (22-44); MD NO; MEAN CORPUSCULAR HEMOGLOBIN 30.3 pg (27.5-34.5); MEAN CORPUSCULAR HGB CONC 34.2 g/dL (33.2-36.2); MEAN CORPUSCULAR VOLUME 88.7 fL (81-97); MEAN PLATELET VOLUME 8.8 fL (7.4-10.4); MONOCYTES # (AUTO) 0.51 x10^3/uL (0.2-0.8); MONOCYTES % (AUTO) 4 % (2-9); NEUTROPHILS # (AUTO) 10.77 x10^3/uL (1.8-6.8); NEUTROPHILS % (AUTO) 87 % (42-75); PLATELET COUNT 245 x10^3/uL (130-400); RED BLOOD COUNT 3.09 x10^6/uL (4.38-5.82); RED CELL DISTRIBUTION WIDTH 14.4 % (9.4-14.8)
[2019-12-21 06:14] LABS: ALBUMIN 1.6 g/dL (3.4-5.0); ANION GAP 10 mmol/L (5-15); CALCIUM 7.8 mg/dL (8.5-10.1); CHLORIDE 112 mmol/L (98-107)
[2019-12-21 06:19] LABS: ALANINE AMINOTRANSFERASE 18 U/L (12-78); ALKALINE PHOSPHATASE 102 U/L (45-117); BILIRUBIN,TOTAL 0.7 mg/dL (0.2-1.0); CREATININE 1.46 mg/dL (0.7-1.3); TOTAL PROTEIN 5.3 g/dL (6.4-8.2)
[2019-12-21] MEDS: INSULIN LISPRO 100 UNITS/ML, PEN SQ-INSULIN SCH ×4 (07:00→21:20)
[2019-12-21 07:37] VITALS: BP 123/85
[2019-12-21] MEDS: CLOPIDOGREL 75 MG TABLET PO SCH (08:05)
[2019-12-21] MEDS: LACTOBACILLUS CHEW TABLET PO SCH ×3 (08:05→21:21)
[2019-12-21] MEDS: LINEZOLID PMX 600MG/300ML 300 ML IV SCH ×2 (09:26→21:21)
[2019-12-21] MEDS: SODIUM CHLORIDE FLUSH 10ML SYR IVF SCH ×2 (09:26→21:23)
[2019-12-21 11:49] VITALS: BP 121/71
[2019-12-21] MEDS ORDERED: FUROSEMIDE 40 MG/4 ML IV ONE (12:30)
[2019-12-21] MEDS ORDERED: POTASSIUM CHLORIDE 20 MEQ TAB.ER.PRT PO ONE (12:30)
[2019-12-21 15:41] VITALS: BP 125/74
[2019-12-21] MEDS: NICOTINE 21 MG/24 HR PATCH.TD24 TD SCH (17:14)
[2019-12-21 19:07] VITALS: BP 113/67
[2019-12-21] MEDS: ATORVASTATIN 80 MG TABLET PO SCH ×2 (21:21→21:30)
[2019-12-21] MEDS: MORPHINE SULFATE 4 MG/ML, 1ML IVPush PRN (21:28)
[2019-12-22 01:26] VITALS: BP 117/63
[2019-12-22] MEDS: AMPICILLIN/SULBACTAM 1,500 MG in SODIUM CHLORIDE 0.9% 50 ML IV SCH ×2 (02:45→08:34)
[2019-12-22] MEDS: HEPARIN 5,000 UNITS/ML, 1ML SQ SCH (05:29)
[2019-12-22] MEDS: CARVEDILOL 3.125 MG TABLET PO SCH (05:29)
[2019-12-22 05:38] LABS: BASOPHILS % (AUTO) 0 % (0-1); EOSINOPHILS # (AUTO) 0.02 x10^3/uL (0-0.4); EOSINOPHILS % (AUTO) 0 % (1-7); LYMPHOCYTES # (AUTO) 1.05 x10^3/uL (1-3.4); LYMPHOCYTES % (AUTO) 8 % (22-44); MD NO; MEAN CORPUSCULAR HEMOGLOBIN 30.1 pg (27.5-34.5); MEAN CORPUSCULAR HGB CONC 33.5 g/dL (33.2-36.2); MEAN CORPUSCULAR VOLUME 89.7 fL (81-97); MEAN PLATELET VOLUME 9.1 fL (7.4-10.4); MONOCYTES # (AUTO) 0.49 x10^3/uL (0.2-0.8); MONOCYTES % (AUTO) 4 % (2-9); NEUTROPHILS # (AUTO) 10.89 x10^3/uL (1.8-6.8); NEUTROPHILS % (AUTO) 88 % (42-75); PLATELET COUNT 243 x10^3/uL (130-400); RED BLOOD COUNT 3.47 x10^6/uL (4.38-5.82); RED CELL DISTRIBUTION WIDTH 14.2 % (9.4-14.8)
[2019-12-22 05:47] LABS: CHLORIDE 114 mmol/L (98-107)
[2019-12-22 05:54] LABS: ALBUMIN 1.5 g/dL (3.4-5.0); ANION GAP 11 mmol/L (5-15); CALCIUM 7.6 mg/dL (8.5-10.1); CREATININE 1.52 mg/dL (0.7-1.3)
[2019-12-22 07:26] VITALS: BP 109/65
[2019-12-22] MEDS: INSULIN LISPRO 100 UNITS/ML, PEN SQ-INSULIN SCH ×2 (07:43→11:21)
[2019-12-22] MEDS: CLOPIDOGREL 75 MG TABLET PO SCH (08:34)
[2019-12-22] MEDS: LACTOBACILLUS CHEW TABLET PO SCH (08:34)
[2019-12-22] MEDS: SODIUM CHLORIDE FLUSH 10ML SYR IVF SCH (08:35)
[2019-12-22] MEDS: LINEZOLID PMX 600MG/300ML 300 ML IV SCH (09:57)
[2019-12-22] MEDS ORDERED: ACET325T26 PO (11:17)
[2019-12-22] MEDS ORDERED: LINE600I2 IV (11:17)
[2019-12-22] MEDS ORDERED: HEPA50002 SQ (11:17)
[2019-12-22] MEDS ORDERED: CARV3.1212 PO (11:17)
[2019-12-22] MEDS ORDERED: INSU100I11 SQ-INSULIN (11:17)
[2019-12-22] MEDS ORDERED: ATOR-2 PO (11:17)
[2019-12-22] MEDS ORDERED: SENN-193 PO (11:17)
[2019-12-22] MEDS ORDERED: AMPI1.5V IV (11:17)
[2019-12-22] MEDS ORDERED: ACID1TAB7 PO (11:17)
[2019-12-22] MEDS ORDERED: CLOP75TA PO (11:17)
[2019-12-22] MEDS ORDERED: ONDA4TAB7 PO (11:17)
[2019-12-22] MEDS ORDERED: NICO-487 TD (11:17)
== END 2019-12-22 13:21 | DRG 853 ==
LOC: ED 14:35 → EDIP 17:04 → 3N 19:04 → 4EST 12-10 11:30 → 5SO 12-12 12:58 → 3N 12-18 21:27
PROVIDERS: ADMIT Internal Medicine; ATTEND Hospitalist
PROC: 4A023N7 Measurement of Cardiac Sampling and Pressure, Left Heart, Percutaneous Approach (ICD-10-PCS; 2019-12-13)
PROC: B2111ZZ Fluoroscopy of Multiple Coronary Arteries using Low Osmolar Contrast (ICD-10-PCS; 2019-12-13)
PROC: B2151ZZ Fluoroscopy of Left Heart using Low Osmolar Contrast (ICD-10-PCS; 2019-12-13)
PROC: 04UL0JZ Supplement Left Femoral Artery with Synthetic Substitute, Open Approach (ICD-10-PCS; 2019-12-15)
PROC: 04CK0ZZ Extirpation of Matter from Right Femoral Artery, Open Approach (ICD-10-PCS; 2019-12-15)
PROC: 04UK0JZ Supplement Right Femoral Artery with Synthetic Substitute, Open Approach (ICD-10-PCS; 2019-12-15)
PROC: 0JBP0ZZ Excision of Left Lower Leg Subcutaneous Tissue and Fascia, Open Approach (ICD-10-PCS; 2019-12-15)
PROC: 0JBN0ZZ Excision of Right Lower Leg Subcutaneous Tissue and Fascia, Open Approach (ICD-10-PCS; 2019-12-15)
PROC: 04CL0ZZ Extirpation of Matter from Left Femoral Artery, Open Approach (ICD-10-PCS; principal; 2019-12-15 12:30)
PROC: 30233N1 Transfusion of Nonautologous Red Blood Cells into Peripheral Vein, Percutaneous Approach (ICD-10-PCS; 2019-12-16)
DX: A41.9 Sepsis, unspecified organism (principal); E43 Unspecified severe protein-calorie malnutrition; N17.0 Acute kidney failure with tubular necrosis; I50.43 Acute on chronic combined systolic (congestive) and diastolic (congestive) heart failure; E87.1 Hypo-osmolality and hyponatremia; L97.919 Non-pressure chronic ulcer of unspecified part of right lower leg with unspecified severity; L97.929 Non-pressure chronic ulcer of unspecified part of left lower leg with unspecified severity; E87.2 Acidosis; I13.0 Hypertensive heart and chronic kidney disease with heart failure and stage 1 through stage 4 chronic kidney disease, or unspecified chronic kidney disease; I42.9 Cardiomyopathy, unspecified; E11.52 Type 2 diabetes mellitus with diabetic peripheral angiopathy with gangrene; L03.115 Cellulitis of right lower limb; L03.116 Cellulitis of left lower limb; R65.20 Severe sepsis without septic shock; E11.51 Type 2 diabetes mellitus with diabetic peripheral angiopathy without gangrene; E11.65 Type 2 diabetes mellitus with hyperglycemia; I25.10 Atherosclerotic heart disease of native coronary artery without angina pectoris; B95.62 Methicillin resistant Staphylococcus aureus infection as the cause of diseases classified elsewhere; D63.8 Anemia in other chronic diseases classified elsewhere; E83.39 Other disorders of phosphorus metabolism; F17.210 Nicotine dependence, cigarettes, uncomplicated; E83.42 Hypomagnesemia; E83.51 Hypocalcemia; N18.9 Chronic kidney disease, unspecified; E11.22 Type 2 diabetes mellitus with diabetic chronic kidney disease; E11.40 Type 2 diabetes mellitus with diabetic neuropathy, unspecified; E78.5 Hyperlipidemia, unspecified; I49.3 Ventricular premature depolarization; R74.0 Nonspecific elevation of levels of transaminase and lactic acid dehydrogenase [LDH]; I25.2 Old myocardial infarction; Z86.73 Personal history of transient ischemic attack (TIA), and cerebral infarction without residual deficits; Z95.5 Presence of coronary angioplasty implant and graft; Z82.49 Family history of ischemic heart disease and other diseases of the circulatory system; Z71.6 Tobacco abuse counseling; Z91.19 Patient's noncompliance with other medical treatment and regimen; Z79.4 Long term (current) use of insulin; Z79.82 Long term (current) use of aspirin; Z79.899 Other long term (current) drug therapy; Z83.3 Family history of diabetes mellitus
CPT/HCPCS: 36415; 71045; 76770; 80048; 80053; 80061; 80069; 81001; 82550; 82570; 82962; 82977; 83036; 83605; 83735; 84100; 84156; 84300; 85014; 85018; 85025; 86140; 86850; 86900; 86923; 87040; 87070; 87086; 87205; 93005; 93306; 93458; 93922; 93925; 93970; 94640; 96374; 96375; 96376; 99156; C1769; C1894; G0378; J0583; J0690; J1100; J1644; J1940; J2020; J2250; J2405; J2704; J2720; J3010; J7070; C1768; J0295; J1815; J2270; J2440; J3475; J3480; J7030; J7040; J7050; P9016; Q9967

== ENCOUNTER 2019-12-29 08:44 | Inpatient (IN) | payer MEDICARE ==
[~2019-12-29] VITALS: Ht 175.3 cm; Wt 85.7 kg
[2019-12-29] MEDS: LACTOBACILLUS CHEW TABLET PO SCH ×3 (08:20→21:00)
[~2019-12-29 08:44] MED LIST: ACET325T26 PO; ACID1TAB7 PO; AMPI1.5V IV; ASPI-515 PO; ATOR-2 PO; CARV3.1212 PO; CLOP75TA PO; FURO-93 PO; HEPA50002 SQ; INSU100I11 SQ-INSULIN; LINE600I2 IV; LISI-170 PO; METF500T27 PO; NICO-487 TD; NITR1PAT20 TD; ONDA4TAB7 PO; SENN-193 PO
--- NOTE | 2019-12-29 09:00 | NUR ---
TASK RN: EKG COMPLETED BY THIS RN. REVIEWED BY DR VARNER.
--- NOTE | 2019-12-29 09:00 | NUR ---
PT ARRIVED TO ROOM 25 PER [facility]. INITIALLY SETTLED BY SAHRA ORTIZ. REPORT TO MOE ORTIZ. PT LYING ON CART WITH SOME CONFUSION, VERY PALE COOL SKIN, BUT DENIES PAIN AT THIS TIME. PULSE OX NOT READING CORRECTLY DUE TO SEVERE PVD TO EXTREMITIES. PT HAS PITTING EDEMA TO BUE AND BLE. PT HAS A DERMABONDED INCSION TO RIGHT GROIN, WELL APPROXIMATED AND HEALING WELL, WITH SEVERE BRUISING ACROSS LOWER ABDOMEN. PT HAS GAUZE AROUND BOTH CALF'S WITH VISUAL WEEPING ON THE DRESSINGS. DRESSING WILL BE REMOVED TO DOCUMENT THE WOUNDS THAT ARE PRESENT ON ARRIVAL. PT HAS A PELAYO CATHETER IN PLACE, DOES NOT HAVE A SECUREMENT DEVICE. RN WILL APPLY ONE. PT ARRIVED WITH A HEPARIN DRIP RUNNING, WHICH WAS DISCONTINUED IMMEDIATELY, THROUGH A 20GA IV IN RAC. DRESSING REMOVED AND EXTENSION TUBING APPLIED. ASSESSMENT PERFORMED, IN TO SEE PATIENT.
[2019-12-29] MEDS ORDERED: HEPARIN 5,000 UNITS/ML, 1ML IV PRN (09:30)
[2019-12-29] MEDS ORDERED: HEPARIN 25,000 UNITS/250ML PMX 250 ML IV PRN (09:30)
[2019-12-29] MEDS ORDERED: HEPARIN 5,000 UNITS/ML, 1ML IV ONE (09:30)
--- NOTE | 2019-12-29 10:00 | NUR ---
PT NAKED UPON ENTERING ROOM. WHEN ASKED WHAT PATIENT WAS DOING, HE RESPONDED THAT HE DID NOT KNOW. LAB HAD BEEN IN ROOM TO DRAW BLOOD CULTURES. RN REDRESSED PATIENT IN GOWN, APPLIED MONITORS AND COVERED WITH WARM BLANKETS. RN AGAIN GIVES PATIENT CALL LIGHT WITH INSTRUCTIONS ON HOW TO USE IT.
[2019-12-29] MEDS ORDERED: VANCOMYCIN 2,200 MG in SODIUM CHLORIDE 0.9% 500 ML IV ONE (10:30)
[2019-12-29] MEDS ORDERED: PIPERACILLIN/TAZO/PMX 3.375GM 50 ML IVPB ONE (10:30)
[2019-12-29] MEDS ORDERED: VANCOMYCIN PER PHARMACY MC ONE (10:30)
[2019-12-29] MEDS ORDERED: HEPARIN 25,000 UNITS/250ML PMX 250 ML ONE (10:43)
--- NOTE | 2019-12-29 11:00 | NUR ---
LAB AT BEDSIDE TO DRAW LAB. RN READY TO START HEPARIN DRIP AND VANCOMYCIN, BUT ADDITIONAL LINE NEEDED. THIS RN ATTEMPTS TWICE, FIRST ATTEMPT VEIN BLEW AND UNABLE TO ADVANCE CATHETER, SECOND ATTEMPT IV CHAMBER FILLED WITH CLEAR FLUID FROM ALL THE EDEMA, AND THEN A TRACE OF PINK. CATHETER ADVANCED, BUT WHEN ATTEMPTED TO DRAW LAB, CLEAR FLUID ONLY COMING OUT. IV CATHETER REMOVED. RN REQUESTING HELP WITH SECOND IV START. PT CONTINUES TO MAKE COMMENTS ABOUT HOW HE IS DYING ANYWAY, AND JUSTS WANTS A DRINK OF WATER. RN HAS PROVIDED ICE CHIPS, AND PATIENT HAS BEEN GETTING THEM. PT KEEPS TELLING RN THAT HE IS DYING AND WE SHOULD JUST KILL HIM. RN HAS LONG CONVERSATION ABOUT THESE STATEMENTS, AND IT APPEARS PATIENT IS JUST TIRED OF NOT FEELING GOOD. PT DOES NOT WANT ANY HEROIC MEASURES DONE IF SOMETHING WERE TO HAPPEN. RN RELAYED THIS INFORMATION TO DR. VARNER.
[2019-12-29 11:24] LABS: ALBUMIN 1.9 g/dL (3.4-5.0); ANION GAP 11 mmol/L (5-15); CALCIUM 8.3 mg/dL (8.5-10.1); CHLORIDE 113 mmol/L (98-107); CREATININE 2.14 mg/dL (0.7-1.3)
[2019-12-29 11:26] LABS: BASOPHILS # (AUTO) 0.01 x10^3/uL (0-0.1); BASOPHILS % (AUTO) 0 % (0-1); EOSINOPHILS % (AUTO) 0 % (1-7); LYMPHOCYTES # (AUTO) 0.66 x10^3/uL (1-3.4); LYMPHOCYTES % (AUTO) 4 % (22-44); MD NO; MEAN CORPUSCULAR HEMOGLOBIN 29.3 pg (27.5-34.5); MEAN CORPUSCULAR HGB CONC 32.8 g/dL (33.2-36.2); MEAN CORPUSCULAR VOLUME 89.5 fL (81-97); MEAN PLATELET VOLUME 9.2 fL (7.4-10.4); MONOCYTES # (AUTO) 0.26 x10^3/uL (0.2-0.8); MONOCYTES % (AUTO) 2 % (2-9); NEUTROPHILS % (AUTO) 94 % (42-75); PLATELET COUNT 339 x10^3/uL (130-400); RED BLOOD COUNT 3.06 x10^6/uL (4.38-5.82); RED CELL DISTRIBUTION WIDTH 14.1 % (9.4-14.8)
[2019-12-29 11:30] LABS: INTERNATIONAL NORMALIZED RATIO 1.42 (0.93-1.1); PROTHROMBIN TIME 15.1 Seconds (9.6-11.5)
[2019-12-29] MEDS ORDERED: PIPERACILLIN/TAZO/PMX 3.375GM 50 ML ONE (12:26)
--- NOTE | 2019-12-29 13:24 | NUR ---
SPOKE WITH MEDICAL RECORDS AT [facility]. THEY PROVIDED US WITH THE COVID NUMBER: [id number]. PROVIDED THEM WITH OUR FAX NUMBER TO SEND US THE RESULTS WHEN THEY GET THEM.
[2019-12-29] MEDS ORDERED: ACETAMINOPHEN 325 MG TABLET PO PRN ×2 (14:00)
[2019-12-29] MEDS ORDERED: SENNA/DOCUSATE TABLET PO PRN (14:00)
[2019-12-29] MEDS ORDERED: VANCOMYCIN PER PHARMACY MC PRN (14:00)
[2019-12-29] MEDS ORDERED: ONDANSETRON ODT 4 MG PO PRN (14:00)
[2019-12-29] MEDS ORDERED: hydrALAzine 20 MG/ML, 1ML IVPush PRN (14:00)
[2019-12-29] MEDS ORDERED: ONDANSETRON 2MG/ML, 2ML IVPush PRN (14:00)
--- NOTE | 2019-12-29 14:28 | NUR ---
BREAK RN NOTE: REPORT RECEIVED FROM DIANA KAYE FOR MEAL BREAK. THIS RN CALLED TELE FLOOR TO GIVE REPORT TO RECEIVING RN. RECEIVING RN UNAVAILABLE TO TAKE REPORT. TELE VP OF PRODUCT UNAVAILABLE TO TAKE REPORT. AWAIITNG CALL BACK TO GIVE REPORT PRIOR TO TRANSPORT. PERSONNEL SECURITY ASSISTANT AT BEDSIDE FOR REPEAT TROP DRAW. PT IS DOZING INTERMITTENTLY, RESPS EVEN AND UNLABORED. NO COMPLAINT AT THIS TIME.
--- NOTE | 2019-12-29 14:45 | NUR ---
TASK RN: REPORT TO DIANA SAWYER. PT BEING TRANSPORTED TO [facility] R/O UNIT.
--- NOTE | 2019-12-29 14:45 | NUR ---
REPORT GIVEN BACK TO PRIMARY RN MIKKI WHO HAS NOW RETURNED FROM HER BREAK.
[2019-12-29 16:20] VITALS: BP 108/75
[2019-12-29] MEDS ORDERED: PHARMACOKINETIC MONITORING MC PRN (17:00)
[2019-12-29] MEDS ORDERED: PHARMACOKINETIC CONSULTATION MC ONE (17:00)
[2019-12-29] MEDS: CARVEDILOL 3.125 MG TABLET PO SCH ×2 (18:09→18:20)
[2019-12-29 18:15] VITALS: BP 97/43
[2019-12-29 19:26] VITALS: BP 106/46
[2019-12-29] MEDS: metFORMIN 500 MG TABLET PO SCH (22:30)
[2019-12-29] MEDS: ATORVASTATIN 80 MG TABLET PO SCH (22:30)
[2019-12-30] VITALS (8 sets, daily range): BP systolic 92–122; BP diastolic 43–61
[2019-12-30] MEDS: PIPERACILLIN/TAZO/PMX 2.25GM 50 ML IV SCH ×2 (00:26→10:15)
[2019-12-30] MEDS: OXYcodone IR 5MG TABLET PO PRN ×3 (00:26→21:39)
[2019-12-30] MEDS: CARVEDILOL 3.125 MG TABLET PO SCH ×2 (06:00→16:30)
[2019-12-30 06:50] LABS: MEAN CORPUSCULAR HEMOGLOBIN 29.7 pg (27.5-34.5); MEAN CORPUSCULAR HGB CONC 33.6 g/dL (33.2-36.2); MEAN CORPUSCULAR VOLUME 88.2 fL (81-97); MEAN PLATELET VOLUME 9.4 fL (7.4-10.4); PLATELET COUNT 255 x10^3/uL (130-400); RED BLOOD COUNT 2.35 x10^6/uL (4.38-5.82); RED CELL DISTRIBUTION WIDTH 14.1 % (9.4-14.8)
[2019-12-30 06:56] LABS: ANION GAP 15 mmol/L (5-15); CALCIUM 7.9 mg/dL (8.5-10.1); CHLORIDE 116 mmol/L (98-107)
[2019-12-30 06:58] LABS: CREATININE 2.08 mg/dL (0.7-1.3)
[2019-12-30 07:18] LABS: BASOPHILS % (AUTO) 0 % (0-1); EOSINOPHILS # (AUTO) 0.04 x10^3/uL (0-0.4); EOSINOPHILS % (AUTO) 0 % (1-7); LYMPHOCYTES # (AUTO) 1.12 x10^3/uL (1-3.4); LYMPHOCYTES % (AUTO) 10 % (22-44); MD SCAN; MONOCYTES # (AUTO) 0.37 x10^3/uL (0.2-0.8); MONOCYTES % (AUTO) 3 % (2-9); NEUTROPHILS % (AUTO) 86 % (42-75)
[2019-12-30] MEDS: metFORMIN 500 MG TABLET PO SCH ×3 (09:00→21:38)
[2019-12-30] MEDS: SENNA/DOCUSATE TABLET PO SCH ×2 (09:00→10:17)
[2019-12-30] MEDS: FUROSEMIDE 20 MG TABLET PO SCH ×2 (09:00→10:16)
[2019-12-30] MEDS: LACTOBACILLUS CHEW TABLET PO SCH ×4 (09:00→21:00)
[2019-12-30] MEDS ORDERED: ASPIRIN 81 MG TABLET EC PO SCH (09:00)
[2019-12-30] MEDS ORDERED: CLOPIDOGREL 75 MG TABLET PO SCH (09:00)
[2019-12-30] MEDS ORDERED: ASPIRIN 325 MG TABLET EC PO SCH ×2 (09:40→10:30)
[2019-12-30] MEDS: VANCOMYCIN 1,700 MG in SODIUM CHLORIDE 0.9% 250 ML IV SCH (12:31)
[2019-12-30] MEDS: PIPERACILLIN/TAZO/PMX 3.375GM 50 ML IV SCH ×2 (16:30→21:40)
[2019-12-30] MEDS: ATORVASTATIN 80 MG TABLET PO SCH ×2 (21:00→21:39)
[2019-12-31 02:00] VITALS: BP 110/64
[2019-12-31] MEDS: PIPERACILLIN/TAZO/PMX 3.375GM 50 ML IV SCH ×2 (04:00→12:14)
[2019-12-31] MEDS: OXYcodone IR 5MG TABLET PO PRN ×2 (06:10→16:43)
[2019-12-31] MEDS: CARVEDILOL 3.125 MG TABLET PO SCH (06:10)
[2019-12-31 08:03] VITALS: BP 102/71
[2019-12-31 09:14] LABS: MEAN CORPUSCULAR HGB CONC 33.2 g/dL (33.2-36.2); MEAN CORPUSCULAR VOLUME 87.4 fL (81-97); MEAN PLATELET VOLUME 8.9 fL (7.4-10.4); PLATELET COUNT 216 x10^3/uL (130-400); RED BLOOD COUNT 2.55 x10^6/uL (4.38-5.82); RED CELL DISTRIBUTION WIDTH 14.8 % (9.4-14.8)
[2019-12-31 09:23] LABS: ALANINE AMINOTRANSFERASE 22 U/L (12-78); ALBUMIN 1.8 g/dL (3.4-5.0); ANION GAP 9 mmol/L (5-15); CALCIUM 8.1 mg/dL (8.5-10.1); CHLORIDE 119 mmol/L (98-107)
[2019-12-31 09:30] LABS: ALKALINE PHOSPHATASE 93 U/L (45-117); BILIRUBIN,TOTAL 0.9 mg/dL (0.2-1.0)
[2019-12-31] MEDS: metFORMIN 500 MG TABLET PO SCH (10:00)
[2019-12-31] MEDS: LACTOBACILLUS CHEW TABLET PO SCH (10:00)
[2019-12-31] MEDS: SENNA/DOCUSATE TABLET PO SCH (10:00)
[2019-12-31] MEDS: FUROSEMIDE 20 MG TABLET PO SCH (10:00)
[2019-12-31 10:20] LABS: MD SCAN
[2019-12-31 10:21] LABS: BASOPHILS # (AUTO) 0.04 x10^3/uL (0-0.1); BASOPHILS % (AUTO) 0 % (0-1); EOSINOPHILS % (AUTO) 0 % (1-7); LYMPHOCYTES % (AUTO) 11 % (22-44); MONOCYTES # (AUTO) 0.41 x10^3/uL (0.2-0.8); MONOCYTES % (AUTO) 4 % (2-9); NEUTROPHILS # (AUTO) 7.89 x10^3/uL (1.8-6.8); NEUTROPHILS % (AUTO) 85 % (42-75)
[2019-12-31 12:54] VITALS: BP 116/59
[2019-12-31 13:16] VITALS: BP 91/51
[2019-12-31] MEDS: VANCOMYCIN 1,700 MG in SODIUM CHLORIDE 0.9% 250 ML IV SCH (14:00)
[2019-12-31 14:57] VITALS: BP 110/75
[2019-12-31] MEDS ORDERED: LORazepam 1MG TABLET PO PRN (17:00)
[2019-12-31 19:58] VITALS: BP 102/63
[2020-01-01 00:19] VITALS: BP 106/66
== END 2020-01-01 13:15 | disposition expired | DRG 177 ==
LOC: ED 08:49 → EDIP 12:48 → 3WST 16:14 → 4WST 12-31 13:09
PROVIDERS: ADMIT Hospitalist; ATTEND Internal Medicine
PROC: 30233N1 Transfusion of Nonautologous Red Blood Cells into Peripheral Vein, Percutaneous Approach (ICD-10-PCS; principal; 2019-12-30)
DX: J15.6 Pneumonia due to other Gram-negative bacteria (principal); E43 Unspecified severe protein-calorie malnutrition; G93.41 Metabolic encephalopathy; J96.01 Acute respiratory failure with hypoxia; I21.4 Non-ST elevation (NSTEMI) myocardial infarction; L97.909 Non-pressure chronic ulcer of unspecified part of unspecified lower leg with unspecified severity; N18.4 Chronic kidney disease, stage 4 (severe); E87.2 Acidosis; I13.0 Hypertensive heart and chronic kidney disease with heart failure and stage 1 through stage 4 chronic kidney disease, or unspecified chronic kidney disease; I50.42 Chronic combined systolic (congestive) and diastolic (congestive) heart failure; N17.9 Acute kidney failure, unspecified; K92.2 Gastrointestinal hemorrhage, unspecified; D64.9 Anemia, unspecified; E11.22 Type 2 diabetes mellitus with diabetic chronic kidney disease; E11.51 Type 2 diabetes mellitus with diabetic peripheral angiopathy without gangrene; F17.200 Nicotine dependence, unspecified, uncomplicated; Y95 Nosocomial condition; I25.10 Atherosclerotic heart disease of native coronary artery without angina pectoris; Z51.5 Encounter for palliative care; I25.2 Old myocardial infarction; Z83.3 Family history of diabetes mellitus; Z86.73 Personal history of transient ischemic attack (TIA), and cerebral infarction without residual deficits; Z68.27 Body mass index [BMI] 27.0-27.9, adult; Z20.828 Contact with and (suspected) exposure to other viral communicable diseases
CPT/HCPCS: 36415; 71045; 80048; 80053; 82040; 82728; 83605; 83615; 83735; 84100; 84145; 84484; 85025; 85379; 85520; 85610; 85730; 86140; 86850; 86900; 86923; 87040; 93005; 96365; 96366; 96368; G0378; J2543; J3370; J7040; J7050; P9016